=== PATIENT | male | born 1960 | race Caucasian/White ===

== ENCOUNTER 2017-09-06 10:18 | Day surgery (SDC) | payer OTHER, BC ==
[~2017-09-06] VITALS: Ht 177.8 cm; Wt 68.0 kg
[~2017-09-06 10:18] MED LIST: CARAFATE1 GM PO; COREG3.125 M1 PO; CYANOCOBALAM1000 MCG PO; DIGOXIN125 MCG PO; HUMULIN N100 UNITS/ SC; HUMULIN R100 UNITS/ SC; IMDUR30 MG PO; LASIX40 MG PO; LO-DOSE ASPIRIN81 M2 PO; PLAVIX75 MG PO; POTASSIUM CHLO10 ME3 PO; PREDNISONE10 MG PO; PROTONIX40 MG PO; SYNTHROID75 MCG PO; VITAMIN E1000 UNI1 PO
[2017-09-06 11:00] VITALS: BP 153/86
[2017-09-06 14:17] VITALS: BP 135/85
[2017-09-06 14:41] VITALS: BP 130/67
== END 2017-09-06 14:45 | disposition home or self-care (01) ==
LOC: SDC 10:18
PROVIDERS: Ophthalmology
DX: E11.3592 Type 2 diabetes mellitus with proliferative diabetic retinopathy without macular edema, left eye (principal); H43.12 Vitreous hemorrhage, left eye; E03.9 Hypothyroidism, unspecified; I13.0 Hypertensive heart and chronic kidney disease with heart failure and stage 1 through stage 4 chronic kidney disease, or unspecified chronic kidney disease; E11.22 Type 2 diabetes mellitus with diabetic chronic kidney disease; N18.9 Chronic kidney disease, unspecified; I50.9 Heart failure, unspecified
CPT/HCPCS: 82948; J0690; J0713; J2795; J3300; J7120; Q0175